=== PATIENT | male | born 1960 | race Two or more races ===

== ENCOUNTER 2016-10-18 14:56 | Emergency (ER) | payer OTHER ==
[~2016-10-18] VITALS: Ht 182.9 cm; Wt 81.6 kg
[2016-10-18 17:20] LABS: BASOPHIL % 0.5 % (0-2); PLATELET COUNT 221 x10^3mcL (130-400)
[2016-10-18 17:22] LABS: RED CELL DISTRIBUTION WIDTH 14.6 % (11.5-14.5)
[2016-10-18 17:23] LABS: CARBON DIOXIDE 28.5 mmol/L (21-32); CHLORIDE SERUM 105 mmol/L (98-107); CREATININE SERUM 0.8 mg/dL (0.7-1.3); GFR1 > 60 mL/min; GLUCOSE SERUM 103 mg/dL (74-106); POTASSIUM SERUM 3.8 mmol/L (3.5-5.1); SODIUM SERUM 142 mmol/L (136-145)
[2016-10-18 17:29] LABS: ALBUMIN 3.6 g/dL (3.4-5.0); ALKALINE PHOSPHATASE 101 U/L (46-116); ALT/SGPT 26 U/L (16-63); AST/SGOT 34 U/L (15-37); TOTAL PROTEIN, SERUM 6.7 g/dL (6.4-8.2)
[2016-10-18 18:14] LABS: AMPHETAMINE QUAL UR NONE DETECTED (NEG <=1000)
[2016-10-18 20:20] VITALS: BP 135/92
== END 2016-10-18 19:45 ==
LOC: ED 14:56
PROVIDERS: Emergency Medicine
DX: R45.851 Suicidal ideations (principal); F31.9 Bipolar disorder, unspecified; F41.9 Anxiety disorder, unspecified; F32.9 Major depressive disorder, single episode, unspecified; Z86.59 Personal history of other mental and behavioral disorders
CPT/HCPCS: 36415; G0480